=== PATIENT | male | born 1975 | race Caucasian/White ===

== ENCOUNTER 2021-02-13 08:28 | Emergency (ER) | payer OTHER ==
[2021-02-13] MEDS ORDERED: BACTRIM DS TAB1 EACH PO (09:51)
[2021-02-13] MEDS ORDERED: CEPHALEXIN500 MG PO (09:51)
== END 2021-02-13 10:01 | disposition home or self-care (01) ==
LOC: ER1 08:28
DX: L02.411 Cutaneous abscess of right axilla (principal)
CPT/HCPCS: 10060; 99282